=== PATIENT | male | born 1955 | race Caucasian/White ===

== ENCOUNTER 2022-03-03 10:25 | Outpatient (CLI) | payer BC, SELFPAY ==
--- NOTE | 2022-03-03 | XR_ITS ---
WS: [id number] Exam: XR wrist LT min 3V* [id number] Date/Time of Exam: 03/03/2022 10:37 AM Reason For Exam: LEFT WRIST PAIN There are no fractures, soft tissue swelling, or unusual calcifications. The wrist shows normal bony alignment. There is no irregularity of the bony architecture. XR/XR wrist LT min 3V* [id number] IMPRESSION: Negative left wrist.
== END 2022-03-03 10:26 | disposition home or self-care (01) ==
PROVIDERS: PCP Family Medicine; Visit Provider Family Medicine
DX: M25.532 Pain in left wrist (principal)
CPT/HCPCS: 73110

== ENCOUNTER 2024-04-15 12:08 | Outpatient (CLI) | payer OTHER, SELFPAY ==
--- NOTE | 2024-04-15 12:11 | XR_ITS ---
WS: [id number] Exam: XR chest 2V* [id number] Date/Time of Exam: 04/15/2024 12:12 PM Reason For Exam: coughing X 1 yr, after covid No priors. The lungs are fully expanded and clear. Cardiomediastinal silhouette appears normal. No pleural effus ions. Fusion hardware in the lower C-spine. Spondylosis of the mid T-spine. XR/XR chest 2V* [id number] IMPRESSION: 1. Negative chest.
== END 2024-04-15 12:09 | disposition home or self-care (01) ==
LOC: RAD 12:09
PROVIDERS: PCP Family Medicine; Visit Provider Family Medicine
DX: R05.3 Chronic cough (principal)
CPT/HCPCS: 71046

== ENCOUNTER → 2024-06-17 09:26 | Outpatient (BNVA) | payer OTHER, SELFPAY | PROVIDERS: PCP Family Medicine; Visit Provider Family Medicine | DX: I10 Essential (primary) hypertension (principal); E78.00 Pure hypercholesterolemia, unspecified; E03.8 Other specified hypothyroidism; Z12.5 Encounter for screening for malignant neoplasm of prostate; Z00.00 Encounter for general adult medical examination without abnormal findings; M21.372 Foot drop, left foot | CPT/HCPCS: 80053; 80061; 84439; 84443; 85025; G0103 ==